=== PATIENT | male | born 1955 | race Caucasian/White ===

== ENCOUNTER 2017-08-29 07:58 | Inpatient (IN) | payer BC ==
--- NOTE | 2017-07-31 09:39 | HISTORY & PHYSICAL EXAMINATION ---
DATE OF ADMISSION: 08/29/2017 PROCEDURE: Left knee replacement. HISTORY OF PRESENT ILLNESS: The patient is a jeremie 61-year-old male who presents today for preop evaluation prior to left knee replacement. He states he has been having pain in this knee for many years now, which has gradually worsened, it has gotten to the point now that it is affecting his daily activities including walking, standing, going up and down steps. He has tried previous oral anti-inflammatories including ibuprofen and Mobic, has done physical therapy, also wears a brace. He has tried previous viscosupplementation including Euflexxa, also has had bilateral knee arthroscopies in the past. At this point in time, x-rays reveal end-stage DJD of the left knee, and after discussing further care, would like to proceed with left knee replacement. PAST MEDICAL HISTORY: 1. Hypertension. 2. Type 2 diabetes, was controlled with diet for the last 10 years, however, was recently placed on metformin about 3 months ago. 3. BPH. ALLERGIES: PENICILLIN CAUSES HIVES. MEDICATIONS: 1. Lisinopril/HCTZ 10/12.5 mg daily. 2. Metformin 500 mg 2 tablets b.i.d. 3. Finasteride 5 mg daily. 4. Mobic 15 mg daily. 5. Trazodone 50 mg at bedtime. FAMILY HISTORY: Noncontributory. SOCIAL HISTORY: The patient denies history of smoking or tobacco use. No alcohol consumption. PAST SURGICAL HISTORY: 1. Bilateral knee arthroscopies outlined above. 2. Hernia repair 2012. 3. Pinky surgery 1992. 4. Left shoulder rotator cuff repair 12/2016. REVIEW OF SYSTEMS: Otherwise negative. Please see HPI for pertinent positives. PHYSICAL EXAMINATION: GENERAL: Jeremie 61-year-old male in no acute distress, alert and oriented x3. He is 6 feet 1, weighs 212 pounds. VITAL SIGNS: Blood pressure 138/86, pulse 60, O2 sats 98%. HEENT: Normocephalic, atraumatic. CARDIAC: Regular rate and rhythm. No murmurs or gallops appreciated. Resting pulse 60 beats per minute. LUNGS: Clear to auscultation without rales or wheeze bilaterally. ABDOMEN: Soft, nontender. Bowel sounds present. EXTREMITIES: Left lower extremity is neurovascularly intact. Calves are soft and nontender. DP pulse +2. Demonstrates good quad tone. Straight leg raise without lag. No erythema or warmth. Has mild effusion. Overall varus alignment. Has positive crepitation with motion. Range of motion is 0/3/115. His knee is ligamentously stable. IMAGING: Reviewed of the left knee showed overall varus alignment, complete loss of joint space of the medial compartment as well as patellofemoral joint with large osteophyte formation, subchondral sclerosis noted. IMPRESSION: 1. Left knee degenerative joint disease. 2. Hypertension. 3. Type 2 diabetes. PLAN: Further care discussed with the patient. At this point in time, has failed conservative measures and would like to proceed with left knee replacement. Will place on aspirin 81 mg p.o. b.i.d. for a month postop. We will also plan on discharge home with home health physical therapy.
[2017-07-31 11:38] VITALS: BMI 28.0
--- NOTE | 2017-07-31 12:07 | PAT Medication Instructions ---
Service Date Jul 31, 2017. Current Home Medication List Acetaminophen (Tylenol Arthritis Ext Rel), 1,300 MG PO Q8H PRN for PRN Finasteride (Proscar), 5 MG PO QPM Hctz/Lisinopril (Lisinopril/Hctz 10/12.5 Mg), 1 TAB PO QAM Meloxicam (Mobic), 15 MG PO QAM Metformin Hcl (Glucophage), 500 MG PO BID Tamsulosin Hcl (Flomax), 0.4 MG PO QPM Trazodone Hcl (Trazodone), 50 MG PO HS PRN for RN Vitamins W/ Lipotropics (Lipoflavonoid), 2 TAB PO BID Medication Instructions For Your Scheduled Surgery - Check with your surgeon for instructions for: Meloxicam (Mobic), 15 MG PO QAM - Hold the following medications 48 hours prior to surgery: Metformin Hcl (Glucophage), 500 MG PO BID - Hold the following medications the morning of surgery: Hctz/Lisinopril (Lisinopril/Hctz 10/12.5 Mg), 1 TAB PO QAM Vitamins W/ Lipotropics (Lipoflavonoid), 2 TAB PO BID - Take the following medications the morning of surgery with a sip of water: Acetaminophen (Tylenol Arthritis Ext Rel), 1,300 MG PO Q8H PRN (if needed, can be taken up to 4 hours before surgery) - Take the following medications as scheduled the night before surgery: Vitamins W/ Lipotropics (Lipoflavonoid), 2 TAB PO BID Trazodone Hcl (Trazodone), 50 MG PO HS PRN (if needed) Tamsulosin Hcl (Flomax), 0.4 MG PO QPM Finasteride (Proscar), 5 MG PO QPM Acetaminophen (Tylenol Arthritis Ext Rel), 1,300 MG PO Q8H PRN (if needed) If you have any questions please call us at [phone] or [phone] or [phone]
[2017-07-31 12:56] LABS: BASO % 0.2 %; BASO ABS # 0.01 K/uL (0-0.2); COMPLETE YES; EOS % 0.7 %; HEMATOCRIT 42.1 % (42-52); IG% 0.2 %; LYMPH % 17.2 %; LYMPH ABS # 0.76 K/uL (1.2-3.4); MEAN CELL VOLUME 93.6 fL (80-100); MEAN CORPUSCULAR HEMOGLOBIN 32.9 pg (25-34); MEAN CORPUSCULAR HGB CONC 35.2 g/dl (32-36); MEAN PLATELET VOLUME 10.1 fL (7.4-10.4); MONO % 6.3 %; NEUT % 75.4 %; PLATELET COUNT 157 K/uL (130-400); WHITE BLOOD COUNT 4.42 K/uL (4.8-10.8)
[2017-07-31 13:02] LABS: URINE APPEARANCE CLEAR (CLEAR); URINE BILIRUBIN NEG (NEG); URINE COLOR YELLOW; URINE NITRITE NEG (NEG); URINE PH 5.5 (4.5-7.5); URINE SPECIFIC GRAVITY 1.013 (1.000-1.030); UROBILINOGEN NEG (NEG); ZZUR CULT IF INDIC CLEAN CATCH NO
[2017-07-31 13:03] LABS: MANUAL MICROSCOPIC REQUIRED? NO; REVIEW REQ? NO
[2017-07-31 13:06] LABS: PROTHROMBIN TIME (PATIENT) 10.7 SECONDS (9.0-12.0)
--- NOTE | 2017-07-31 13:21 | DIAGNOSTIC IMAGING REPORT ---
TWO VIEW CHEST CLINICAL HISTORY: Preoperative examination. FINDINGS: PA and lateral chest radiographs are obtained. No prior studies are available for comparison at the time of dictation. The cardiomediastinal silhouette is unremarkable. The lungs and pleural spaces are clear. There is no pneumothorax. The bony thorax appears intact. IMPRESSION: No active disease in the chest. Electronically signed by: Jose Francisco Garcia M.D. 07/31/2017 1:20 PM Dictated Date/Time: 07/31/2017 1:19 PM
[2017-07-31 13:39] LABS: ESTIMATED AVERAGE GLUCOSE 163 mg/dl; HA1C FLAG Normal (Normal)
[2017-07-31 14:00] LABS: BUN/CREATININE RATIO 19.2 (10-20); CALCIUM 9.2 mg/dl (8.5-10.1); CREATININE 0.94 mg/dl (0.60-1.40); POTASSIUM 4.4 mmol/L (3.5-5.1)
[2017-08-29] VITALS (7 sets, daily range): BP systolic 122–179; BP diastolic 58–78; PULSE 60–86; TEMP 36.4–37; O2SAT 95–97; Ht 185.4 cm; Wt 96.2 kg
[~2017-08-29] VITALS: Ht 185.4 cm; Wt 96.2 kg
[2017-08-29] MEDS: TRANEXAMIC ACID INJ 1,000 MG in SYRINGE 0 ML IV SCH ×2 (06:30→10:29)
--- NOTE | 2017-08-29 07:05 | History & Physical Bridge Note ---
H&P Re-Evaluation Bridge Note: I have examined the patient, reviewed the History & Physical and in the interval since the performance of the History & Physical I have noted the following changes of clinical significance: No changes noted
[~2017-08-29 07:58] MED LIST: ACET1TAB84 PO; ACETAMINOPHEN 500 MG TAB PO SCH; BUPIVACAINE 0.25% 30 ML VIAL ONE; BUPIVACAINE 0.5 % 5 MG/1 ML PF 10ML VIAL ONE; CLINDAMYCIN 600 MG/54 ML D5W 54 ML IV SCH; CeleBREX 200 MG CAP PO SCH; DEXAMETHASONE 4 MG TAB PO SCH; DEXAMETHASONE SOD INJ 4 MG/ML VIAL ONE; EpINEphrine INJ 1MG/ML AMP 1 MG/ML AMP ONE; FAMOTIDINE 20 MG TAB PO SCH; FINA5TAB PO; GABAPENTIN 300 MG CAP PO SCH; GLC/500 PO; LACTATED RINGER'S 1000ML 1,000 ML IV SCH; LACTATED RINGER'S 1000ML 500 ML IV ONE; LACTATED RINGER'S 1000ML IV SCH; LSN/10125 PO; MELO7.5T5 PO; METOCLOPRAMIDE HCL 10 MG TAB PO SCH; ROPIVACAINE 5MG/ML 30 ML 150 MG, BUPIVACAINE 0.5% MPF INJ 30 ML, EpINEphrine HCL INJ 0.... INFIL SCH; TAMS0.4C38 PO; TRAZ50TA35 PO; VITATAB11 PO
[2017-08-29] MEDS ORDERED: MIDAZOLAM HCL 1 MG/ML 2ML VIAL ONE ×2 (08:32→10:47)
[2017-08-29] MEDS ORDERED: FENTANYL CITRATE INJ 50 MCG/1 ML 2 ML VIAL ONE (08:33)
[2017-08-29] MEDS ORDERED: PROPOFOL IV EMULSION 10 MG/ML 20 ML VIAL IV ONE (09:20)
[2017-08-29] MEDS ORDERED: ORTHO JOINT ANESTHETIC ONE (10:11)
[2017-08-29] MEDS ORDERED: BACITRACIN 50000 UNIT VIAL ONE (10:11)
[2017-08-29] MEDS ORDERED: POVIDONE-IODINE OP SOLN 30 ML BTL ONE (10:11)
[2017-08-29] MEDS ORDERED: ONDANSETRON INJ 2 MG/ML 2 ML VIAL IV PRN ×3 (10:15→12:30)
[2017-08-29] MEDS ORDERED: EpHEDrine SULFATE INJ 50 MG/ML AMP IV PRN ×2 (10:15→11:00)
[2017-08-29] MEDS ORDERED: ATROPINE SULFATE 0.1 MG/ML 5ML SYR IV PRN ×2 (10:15→11:00)
--- NOTE | 2017-08-29 11:47 | [facility] Operative Report ---
Operative Report Operative Date Aug 29, 2017. Pre-Operative Diagnosis Left knee degenerative joint disease. Post-Operative Diagnosis Same Procedure(s) Performed Left Total Knee Arthroplasty utilizing Medley & Nephew journey 2 patient matched total knee arthroplasty size 7 femur 6 tibia Poly-35 oval patella Surgeon Dr Diaz Tool Engine Lathe Set Up Operator Surgeon(s) Jose Mora PA-C Estimated Blood Loss 5 ML Findings Severe varus alignment with DJD subchondral cystic formation sclerosis marginal osteophytes varus alignment of knee Specimens a. Left knee- bone and tissue Complication(s) None Disposition Recovery Room / PACU Indications Patient presents after failing attempts at conservative management for DJD of the left knee for severe end-stage Tri-Chlor milligrams joint disease with subchondral cystic formation osteophytes sclerosis patient's failed attempts at injections bracing physical therapy and presents for total knee arthroplasty Description of Procedure After proper prepping and draping of the left lower extremity anterior midline incision was made over the region of the extensor extensor mechanism after meticulous hemostasis was obtained and maintained in subcutaneous tissues a medial parapatellar incision was made The patella was subluxed lateralward the medial lateral gutter were cleaned from any hypertrophic synovitis and scar tissue of the distal femoral block was placed and the distal femoral osteotomy cut was made subsequently the chamfers anterior and posterior osteotomy cuts were made utilizing the 4-in-1 block the tibia was subsequently subluxed anteriorward medial and ateral meniscal remnants were excised in their entirety remnants of the anterior and posterior cruciate ligaments were excised in their entirety excellent exposure of the proximal tibia was obtained the tibial osteotomy guide was placed on the proximal tibial osteotomy cut was made once again the knee was irrigated with copious amounts of sterile saline solution the patella was subsequently everted lateralward thickened scar tissue around the patella was removed the patella was subsequently cut utilizing a freehand technique and was drilled prepared for final preparation and placement of patella socially flexion-extension gaps were checked and the equal and symmetric trials were placed to the appropriate femoral and tibial trials with poly-spacer being placed for equal flexion and extension gaps and full range of motion including extension to 0 and flexion to 140 the trial components after having been taken to recovery range of motion was subsequently removed meticulous hemostasis was obtained and maintained subsequently a knee block injection of joint cocktail including ropivacaine 0.5% 150 mg. Bupivacaine 0.5 % epinephrine 1-200,030 mL's toradol 30 mg dexamethasone 4 mg ketamine 10 mg clonidine 100 micrograms normal saline solution 30 mg was infiltrated into the soft tissues of the posterior knee medial lateral gutters and periosteal synovium special attention was paid to protect neurovascular structures at all times subsequently trial components having been removed the knee was irrigated with sterile saline solution. debris was removed the proximal tibia was subsequently prepared and was made ready for the placement of the tibial component tibial component was also cemented and tamped into position the femoral component was subsequently placed and cemented in the position the patellar component was subsequently cemented in position because hemostasis once again obtained and maintained wound having been thoroughly irrigated with debridement and debridement lavage was performed as well as a medial parapatellar incision closed with #1 Vicryl in interrupted fashion subcutaneous was closed with #2 Vicryl skin was closed with skin clips. PA-C was necessary for prepping and drapping as well as wound closure of deep fascia Sub cutaneous tissue and skin and was necessary for the case. A sterile compressive dressing was placed patient was taken to recovery in stable condition of report dictated by Joe I attest to the content of the Intraoperative Record and any orders documented therein. Any exceptions are noted below. I attest to the content of the Intraoperative Record and any orders documented therein. Any exceptions are noted below.
[2017-08-29] MEDS ORDERED: ALUMINUM/MAGNESIUM/SIMETH (MAALOX MAX) 30 ML UDC PO PRN (12:30)
[2017-08-29] MEDS ORDERED: TRAMADOL HCL 50 MG TAB PO PRN (12:30)
[2017-08-29] MEDS ORDERED: MoRPHine SULFATE 2 MG/ML CARP IV PRN (12:30)
[2017-08-29] MEDS ORDERED: MAGNESIUM HYDROXIDE SUSP 30 ML UDC PO PRN (12:30)
[2017-08-29] MEDS ORDERED: ZOLPIDEM TARTRATE 5 MG TAB PO PRN (12:30)
[2017-08-29] MEDS ORDERED: BISACODYL 10 MG SUPP PR PRN (12:30)
[2017-08-29] MEDS ORDERED: SOD PHOSPHATE/SOD BIPHOSPHATE ENEMA 132 ML BTL PR PRN (12:30)
[2017-08-29] MEDS ORDERED: OXYCODONE HCL IR 5 MG TAB (IMMEDIATE RELEASE) PO PRN (12:30)
[2017-08-29] MEDS ORDERED: TRAZODONE HCL 50 MG TAB PO PRN (12:30)
[2017-08-29] MEDS ORDERED: PHARMACY GLYCEMIC MGMT CONSULT PRN (12:43)
--- NOTE | 2017-08-29 13:02 | Anesthesiology Progress Note ---
Anesthesia Post Op Note Date & Time Aug 29, 2017 at 13:02 Vital Signs Pain Intensity: 0 Vital Signs Past 12 Hours Date Time Temp Pulse Resp B/P (MAP) Pulse Ox O2 Delivery O2 Flow Rate FiO2 08/29/17 12:50 36.3 61 15 115/65 97 Nasal Cannula 2 08/29/17 12:40 60 26 121/61 97 Nasal Cannula 2 08/29/17 12:30 61 17 119/61 97 Nasal Cannula 2 08/29/17 12:20 36.3 62 14 124/66 97 Oxymask 10 08/29/17 08:20 37 66 18 179/78 97 Room Air Notes Mental Status: alert / awake / arousable, participated in evaluation Pt Amnestic to Procedure: Yes Nausea / Vomiting: adequately controlled Pain: adequately controlled Airway Patency, RR, SpO2: stable & adequate BP & HR: stable & adequate Hydration State: stable & adequate Neuraxial Anesthesia: was administered, sensory block is resolving Anesthetic Complications: no major complications apparent
--- NOTE | 2017-08-29 13:03 | DIAGNOSTIC IMAGING REPORT ---
LEFT KNEE 2 VIEWS History: Left total knee arthroplasty. Degenerative arthritis. Postop. FINDINGS: The patient is status post a left total knee arthroplasty. The hardware is intact. No fracture or dislocation. Surgical drains are in place. IMPRESSION: Left total knee arthroplasty. No evidence for hardware complication. Electronically signed by: Get Munoz M.D. 08/29/2017 1:01 PM Dictated Date/Time: 08/29/2017 1:01 PM
[2017-08-29] MEDS ORDERED: DEXTROSE 50% 50 ML SYR IV PRN (13:15)
[2017-08-29] MEDS ORDERED: GLUCOSE 10 TABS/TUBE PO PRN (13:15)
[2017-08-29] MEDS ORDERED: GLUCAGON FOR INJ 1 MG VIAL SQ PRN (13:15)
[2017-08-29] MEDS ORDERED: INSULIN GLARGINE SOLOSTAR 100 UNITS/ML 3 ML PEN SC ONE ×2 (13:15→21:00)
[2017-08-29] MEDS ORDERED: GLUCOSE 40% GEL 15 GM TUBE PO PRN (13:15)
[2017-08-29] MEDS ORDERED: INSULIN ASPART 100 UNITS/ML 3 ML PEN SC SCH (13:30)
[2017-08-29] MEDS: INSULIN ASPART 100 UNITS/ML 3 ML PEN SC SCH ×3 (15:00→21:00)
[2017-08-29] MEDS ORDERED: INSULIN ASPART 100 UNITS/ML 3 ML PEN SC ONE (15:15)
[2017-08-29] MEDS ORDERED: INSULIN HUMAN REGULAR IV BOLUS 3.5 UNIT in SYRINGE 0 ML IV SCH (15:15)
--- NOTE | 2017-08-29 15:37 | Pharmacy Progress Note ---
Glycemic Control Intl Consult Date of Service Aug 29, 2017. Scope Glycemic Pharmacist consulted by MARIANNE Jean on 08/29/17 for glycemic control and to write orders per [facility] inpatient glycemic control protocol Objective Weight (Kilograms): 96.20 Accuchecks BSG (last 24hrs): Test 08/29/17 08:25 08/29/17 12:48 Bedside Glucose 212 mg/dl (70-99) 222 mg/dl (70-99) Recent Pertinent Medications Outpatient Anti-diabetic Regimen: * Metformin 500 mg BID * A1c = 7.3 % 07/31/17 Risk Factors for Insulin Resistance: * Steroids: Decadron 8 mg po preop, 4 mg IV intraop and will receive another 8 mg po on POD #1 * Recent Surgery: POD 0 s/p L total knee arthroplasty * Diet: type 2 diabetes diet ordered postop * Baseline insulin resistance - preop BSG of 212 mg/dL Assessment & Plan ASSESSMENT: * 61 y/o male with type 2 diabetes, fairly well controlled as per recent A1c, however, preop BSG this AM was > 200 mg/dL * Since he is receiving preop and postop Decadron, expect insulin needs to be quite significant, especially with a baseline BSG > 200 * Upon review of patient cases similar to this, insulin requirements are typically based on insulin calculator estimates using the patient's weight and a stress level of 3 for POD 0 - this would be 48 units of Lantus and CF 15, CR 6 for today * Because his baseline BSG is already elevated, it would be prudent to start an insulin drip to quickly improve BSGs * I spoke with the nurse and patient to inform them of above. Will plan to leave the basal on board and use a set carb ratio for the insulin drip to hopefully have the drip on for a short period of time PLAN FOR INPATIENT GLYCEMIC CONTROL: * Start IV insulin infusion per severe stress protocol * Goal Range 110 - 150 mg/dl * Hold outpatient oral diabetes medications - can resume closer to discharge * Basal insulin with LANTUS 48 units SQ x 1 now, then 9 or 16 units tonight if BSG remains elevated * Prandial insulin with a set carb ratio of 1 unit per 6 gm CHO * Please note that the plan above was derived based on current level of insulin resistance and hospital stress. These recommendations are appropriate for inpatient admission only. Plan of care upon discharge will need to be reassessed to avoid potential outpatient hypo/hyperglycemia. Thank you.
[2017-08-29] MEDS: INSULIN REGULAR 250 UNITS in SODIUM CHLORIDE 0.9% 250ML 250 ML IV SCH ×6 (15:42→21:58)
[2017-08-29] MEDS ORDERED: INFLUENZA VIRUS QUAD VACCINE 0.5 ML SYR IM. ONE (16:00)
[2017-08-29] MEDS ORDERED: INFLUENZA ADMINISTRATION CHARGE ONE (16:00)
[2017-08-29] MEDS: KETOROLAC TROMETHAMINE 30 MG/ML VIAL IV. SCH ×2 (16:20→22:04)
[2017-08-29] MEDS: ACETAMINOPHEN 500 MG TAB PO SCH ×2 (16:21→22:04)
[2017-08-29] MEDS: SODIUM CHLORIDE 0.9% 1000ML 1,000 ML IV SCH (17:30)
[2017-08-29] MEDS: CLINDAMYCIN IV 600 MG in DEXTROSE 5% 50ML 50 ML IV SCH (18:11)
[2017-08-29] MEDS: SENNA 8.6 MG TAB PO SCH (22:03)
[2017-08-29] MEDS: FINASTERIDE 5 MG TAB PO SCH (22:03)
[2017-08-29] MEDS: ASPIRIN 81 MG ECTAB PO SCH (22:03)
[2017-08-29] MEDS: TAMSULOSIN HCL 0.4 MG CAP PO SCH (22:03)
[2017-08-30] MEDS ORDERED: INSULIN ASPART 100 UNITS/ML 3 ML PEN SC SCH
[2017-08-30] MEDS: INSULIN REGULAR 250 UNITS in SODIUM CHLORIDE 0.9% 250ML 250 ML IV SCH ×5 (00:03→07:05)
[2017-08-30] MEDS: CLINDAMYCIN IV 600 MG in DEXTROSE 5% 50ML 50 ML IV SCH (02:00)
[2017-08-30] MEDS: SODIUM CHLORIDE 0.9% 1000ML 1,000 ML IV SCH ×2 (02:57→11:40)
[2017-08-30] MEDS: KETOROLAC TROMETHAMINE 30 MG/ML VIAL IV. SCH ×2 (03:57→10:16)
[2017-08-30 04:00] VITALS: BP 113/65; PULSE 60; TEMP 36.9; O2SAT 96
[2017-08-30] MEDS: ACETAMINOPHEN 500 MG TAB PO SCH ×3 (05:06→21:26)
[2017-08-30 05:56] LABS: HEMATOCRIT 33.3 % (42-52); MEAN CELL VOLUME 93.5 fL (80-100); MEAN CORPUSCULAR HEMOGLOBIN 31.2 pg (25-34); MEAN CORPUSCULAR HGB CONC 33.3 g/dl (32-36); MEAN PLATELET VOLUME 9.8 fL (7.4-10.4); PLATELET COUNT 158 K/uL (130-400); RED BLOOD COUNT 3.56 M/uL (4.7-6.1); WHITE BLOOD COUNT 10.84 K/uL (4.8-10.8)
[2017-08-30 06:25] LABS: BUN/CREATININE RATIO 24.3 (10-20); CALCIUM 8.6 mg/dl (8.5-10.1); CREATININE 0.98 mg/dl (0.60-1.40)
--- NOTE | 2017-08-30 07:26 | Orthopedic Progress Note ---
Orthopedic Progress Note Date of Service Aug 30, 2017. Subjective Post OP Day: 1 Reports: feeling well, Denies: complaints Objective calves soft nontender, N/V intact, dressing C/D/I, A&O x3, toes mobile, hemovac drainage (200ml latest shift) Date Time Temp Pulse Resp B/P (MAP) Pulse Ox O2 Delivery O2 Flow Rate FiO2 08/30/17 04:00 36.9 60 16 113/65 (81) 96 Room Air 08/29/17 23:31 Room Air 08/29/17 23:05 36.8 60 16 134/67 (89) 96 Room Air 08/29/17 20:08 36.5 63 17 122/67 (85) 95 Room Air 08/29/17 19:40 Room Air 08/29/17 16:56 37.0 86 17 148/72 (97) 96 Nasal Cannula 2.0 08/29/17 15:52 36.6 73 16 123/58 (79) 97 Nasal Cannula 2.0 08/29/17 15:00 36.4 67 17 122/69 (86) 96 Nasal Cannula 2.0 08/29/17 14:27 65 17 126/71 (89) 96 Nasal Cannula 2.0 08/29/17 14:00 Nasal Cannula 2.0 08/29/17 14:00 Nasal Cannula 2.0 08/29/17 13:45 71 18 120/66 95 Nasal Cannula 2 08/29/17 13:30 68 18 121/66 97 Nasal Cannula 2 08/29/17 13:15 66 20 100/66 96 Nasal Cannula 2 08/29/17 13:00 65 22 110/61 97 Nasal Cannula 2 08/29/17 12:50 36.3 61 15 115/65 97 Nasal Cannula 2 08/29/17 12:40 60 26 121/61 97 Nasal Cannula 2 08/29/17 12:30 61 17 119/61 97 Nasal Cannula 2 08/29/17 12:20 36.3 62 14 124/66 97 Oxymask 10 08/29/17 08:20 37 66 18 179/78 97 Room Air Laboratory Results 24 Hours: Test 08/30/17 05:33 Hematocrit 33.3 % Hemoglobin 11.1 g/dL Assessment & Plan Assessment: POD 1 s/p Left TKA Plan: PT/OT today DVT proph - ASA bid Planning for HH services upon dc Plan for dc tomorrow Inhouse Planning Pain Management: Celebrex, Ultram, Morphine, PO Tylenol, Oxy IR DVT Prophylaxis: TEDs, SCDs, ASA Discharge Planning Discharge Planning: home with home health
[2017-08-30] MEDS ORDERED: INSULIN GLARGINE SOLOSTAR 100 UNITS/ML 3 ML PEN SC ONE ×2 (07:30→21:00)
[2017-08-30] MEDS ORDERED: DEXAMETHASONE 4 MG TAB PO SCH (07:30)
--- NOTE | 2017-08-30 07:40 | Discharge Instructions ---
Discharge Instructions Date of Service Aug 30, 2017. Admission Reason for Admission: Left Knee Osteoarthritis Discharge Discharge Diagnosis / Problem: Left Knee Djd Discharge Goals Goal(s): Decrease discomfort, Improve function Activity Recommendations Activity Limitations: per Instructions/Follow-up section Weightbearing Status: Left weightbearing (as tolerated) . Instructions / Follow-Up Instructions / Follow-Up ACTIVITY RECOMMENDATIONS: SELF CARE INSTRUCTIONS AFTER TOTAL KNEE REPLACEMENT A. You may need to continue a physical therapy program after discharge from the hospital. There are several options available to you. Your doctor will assist you in selecting the best one for you. 1. An out-patient facility 2 to 3 times a week for therapy or home therapy. 2. Continue working on all exercises taught to you in the hospital. Your goals should be to increase bending of your knee to 90 degrees and beyond and to fully straighten your knee. B. You may progress at your own pace from walking with a walker or crutches to a cane; then to no assistive devices. C. Make walking a part of your daily routine. Be up as much as comfortable with rest periods throughout the day. Rest with leg elevation is very important. Use the ice wrap frequently for the first 3-4 weeks. D. There are no restrictions on activities. You may ride in a car, shop, participate in master carpenter and all social activities. E. Wear the long elastic stockings (HORTENSIA hose) 20 hours a day for 2 weeks after surgery. They can be removed several times a day for laundering and for a bath. F. You may shower, no tub baths until cleared by your doctor. SPECIAL CARE INSTRUCTIONS: VERY IMPORTANT TO READ AND REVIEW A. There are a few signs you need to watch for after you are home. Call [facility] if you notice any of the followin. Increased severe knee pain. Some pain is expected especially when you exercise. 2. Increased swelling in your leg or knee; pain or swelling of the calf muscle in either lower leg. 3. Any fluid drainage from the incision. 4. Shortness of breath or chest pain. B. Please call [facility] at if you have any concerns or questions about your operation or recovery. The doctor or his nurse will return your call promptly. C. You must take antibiotics before dental work, bladder, bowel or other surgery. Your doctor will provide you with a permanent care to carry describing this precaution. IMPORTANT: * REMEMBER TO TAKE ASPIRIN, 81 MG, TWICE DAILY FOR 4 WEEKS UNLESS OTHERWISE DIRECTED. THIS IS YOUR BLOOD THINNER. * HIGH RISK PATIENTS MAY BE PRESCRIBED A STRONGER BLOOD THINNER. THIS WILL BE PROVIDED AT DISCHARGE. * CALL IF INCREASED PAIN, REDNESS, DRAINAGE OR FEVER GREATER THAT 101. * WEAR HORTENSIA HOSE 20 HOURS PER DAY FOR 2 WEEKS. * DERMABOND Prineo- This is a mesh tape dressing that is covered with glue. It should remain in place until the incision is properly healed, usually 10-14 days. This dressing is designed to naturally slough off. You may trim the excess mesh tape as it peels off. Incision may be briefly wet in a shower. Dry immediately by blotting with a clean, dry towel. Do not bath or swim until instructed by your doctor. Do not scratch, rub, or pick at the dressing. Do not apply any topical ointments or lotions until dressing is completely removed and/or instructed by your doctor. There may be a small piece of suture material at one end of your incision. Do not pull or trim this. If it is bothersome or catching on clothing, you may cover it with a band-aid. . FOLLOW UP VISIT: If appointment is not already scheduled: Please call [facility] to make a follow-up appointment for 2 weeks after your surgery at . Current Hospital Diet Patient's current hospital diet: Diabetes Type 2 Diet Discharge Diet Recommended Diet: Diabetes Type 2 Diet Procedures Procedures Performed: Left Total Knee Arthroplasty utilizing Medley & Nephew journey 2 patient matched total knee arthroplasty size 7 femur 6 tibia Poly-35 oval patella Pending Studies Studies pending at discharge: no Laboratory Results Hemoglobin A1c Test 07/31/17 12:25 Range/Units Estimated Average Glucose 163 mg/dl Hemoglobin A1c 7.3 H 4.5-5.6 % Medical Emergencies . Who to Call and When: Medical Emergencies: If at any time you feel your situation is an emergency, please call 911 immediately. . Non-Emergent Contact Non-Emergency issues call your: Surgeon Call Non-Emergent contact if: temperature is above 101.5, your pain is not controlled, your pain is worsening, wound has increased drainage, wound has increased redness . "Provider Documentation" section prepared by Jorge Herring. . VTE Core Measure Inpt VTE Proph given/why not?: Other Anticoagulation, T.E.DDarrian Stockings, SCD's [place] Drug Monitoring Program Search Results: patient reviewed within database, no issues identified
[2017-08-30 07:44] VITALS: BP 144/70; PULSE 63; TEMP 36.4; O2SAT 97
[2017-08-30 08:07] VITALS: O2SAT 97
[2017-08-30] MEDS: MULTIVITAMIN TAB PO SCH (09:10)
[2017-08-30] MEDS: ASPIRIN 81 MG ECTAB PO SCH ×2 (09:10→21:26)
[2017-08-30] MEDS: LISINOPRIL/HCTZ 10/12.5MG TAB PO SCH (09:10)
[2017-08-30] MEDS: PANTOprazole SOD 40 MG TAB PO SCH (09:10)
[2017-08-30] MEDS: INSULIN ASPART 100 UNITS/ML 3 ML PEN SC SCH ×4 (09:14→21:27)
--- NOTE | 2017-08-30 09:51 | Pharmacy Progress Note ---
Pharmacy Glycemic Short Note 2 Date of Service Aug 30, 2017. OUTPATIENT ANTIDIABETIC REGIMEN: * Metformin 500 mg BID * A1c 7.3% on 07/31/17 ASSESSMENT: * Patient is POD #1 s/p L TKA * Insulin drip remains on, current rates ~1.1 units/hr, and BSGs have significantly improved with the addition of this * He will receive another dose of Decadron po this AM but no further steroid doses are ordered * Since insulin drip rates are fairly low and basal insulin is already on board , will d/c the insulin drip now * Will give another dose of Lantus this AM, using total daily basal dose and a stress of 2, and then schedule a "sliding scale" of Lantus tonight in case additional is needed * CF/CR will be loosened slightly to a stress of 2 using insulin calculator estimates PLAN FOR INPATIENT GLYCEMIC CONTROL: * Hold outpatient oral diabetes medications - will resume tomorrow for transition to home * Basal insulin * Lantus 32 units this AM, then 9 or 16 units tonight based on BSG * Bolus insulin * NovoLog per scale ACHS or Q6hrs while NPO * Goal Range: Low 110 mg/dL - High 140 mg/dL * LOOSEN to Correction Factor: 25 mg/dL/unit * LOOSEN to Nutritional / Prandial insulin per carb ratio of 1 unit per 8 grams CHO consumed PLAN FOR DISCHARGE: * A1c acceptable * Continue metformin
--- NOTE | 2017-08-30 09:56 | Clinical Documentation Query ---
STEPHANIE Hodge : CLINICAL DOCUMENTATION QUERY Patient underwent elective left TKA on 08/29. Preoperative H&H was 14.8 g/dl and 42.1%. POD #1, repeat values are 11.1 g/dl and 33.3%. EBL for the procedure was 5 ml's. Subsequently documented losses total an additional 775 ml's to date. He is being monitored with serial hematology and I/O including drain outputs. Net I/O noted to be balanced arguing against dilutional component. In your clinical opinion is this patient being managed for: ( x ) Acute blood loss anemia ( ) Not Agree ( ) Other explanation of clinical findings (Please Explain) ( ) Unable to determine (Please Define) ( ) Need to Discuss The medical record reflects the following clinical findings, treatment, and risk factors. Clinical Indicators: As above Treatment:He is being monitored with serial hematology and I/O including drain outputs Risk Factors: Perioperative blood losses. Please clarify and document your clinical opinion in the progress notes and discharge summary. Terms such as "probable", "suspected", "likely", "questionable", "possible", or "still to be ruled out" are acceptable. IF IN AGREEMENT, YOU MUST DOCUMENT ABOVE DIAGNOSTIC STATEMENT IN DAILY PROGRESS NOTES AND DISCHARGE SUMMARY. This document is not part of the patient's record. Thank You, Onur Grady RN [phone]
[2017-08-30 11:33] VITALS: BP 140/72; PULSE 66; TEMP 36.8; O2SAT 96
[2017-08-30 15:59] VITALS: BP 114/58; PULSE 57; TEMP 36.5; O2SAT 97
[2017-08-30] MEDS: TAMSULOSIN HCL 0.4 MG CAP PO SCH (21:26)
[2017-08-30] MEDS: CeleBREX 200 MG CAP PO SCH (21:26)
[2017-08-30] MEDS: FINASTERIDE 5 MG TAB PO SCH (21:26)
[2017-08-30] MEDS: SENNA 8.6 MG TAB PO SCH (21:26)
[2017-08-30 23:40] VITALS: BP 135/73; PULSE 61; TEMP 36.9; O2SAT 98
[2017-08-31] MEDS: ACETAMINOPHEN 500 MG TAB PO SCH (06:08)
[2017-08-31 06:46] VITALS: BP 132/72; PULSE 57; TEMP 36.4; O2SAT 98
--- NOTE | 2017-08-31 07:22 | Orthopedic Progress Note ---
Orthopedic Progress Note Date of Service Aug 31, 2017. Subjective Post OP Day: 2 Reports: feeling well, Denies: complaints Objective calves soft nontender, N/V intact, incision C/D/I, A&O x3, toes mobile Date Time Temp Pulse Resp B/P (MAP) Pulse Ox O2 Delivery O2 Flow Rate FiO2 08/31/17 06:46 36.4 57 16 132/72 (92) 98 Room Air 08/31/17 00:30 Room Air 08/30/17 23:40 36.9 61 16 135/73 (93) 98 Room Air 08/30/17 15:59 36.5 57 17 114/58 (76) 97 Room Air 08/30/17 15:10 Room Air 08/30/17 11:33 36.8 66 16 140/72 (94) 96 Room Air 08/30/17 08:07 97 Room Air 08/30/17 07:44 36.4 63 16 144/70 (94) 97 Room Air 08/30/17 07:30 Room Air Assessment & Plan Assessment: POD 2 s/p Left TKA Plan: PT/OT DVT proph - ASA bid Planning for HH services upon dc Plan for dc today Inhouse Planning Pain Management: Celebrex, Ultram, Morphine, PO Tylenol, Oxy IR DVT Prophylaxis: TEDs, SCDs, ASA Discharge Planning Discharge Planning: home with home health
[2017-08-31] MEDS ORDERED: CLB200 PO (07:24)
[2017-08-31] MEDS ORDERED: ACET-24 PO (07:24)
[2017-08-31] MEDS ORDERED: RXC5 PO (07:24)
[2017-08-31] MEDS ORDERED: ASPEC81 PO (07:24)
[2017-08-31] MEDS ORDERED: SENN1TAB80 PO (07:24)
[2017-08-31] MEDS: CeleBREX 200 MG CAP PO SCH (07:27)
[2017-08-31] MEDS: MULTIVITAMIN TAB PO SCH (07:27)
[2017-08-31] MEDS: ASPIRIN 81 MG ECTAB PO SCH (07:27)
[2017-08-31] MEDS: PANTOprazole SOD 40 MG TAB PO SCH (07:27)
[2017-08-31] MEDS: LISINOPRIL/HCTZ 10/12.5MG TAB PO SCH (07:28)
[2017-08-31] MEDS: INSULIN ASPART 100 UNITS/ML 3 ML PEN SC SCH ×2 (07:34→12:00)
[2017-08-31] MEDS ORDERED: METFORMIN HCL 500 MG TAB PO SCH (08:30)
[2017-08-31 08:38] VITALS: BP 113/66; PULSE 62; O2SAT 98
[2017-08-31 09:38] VITALS: BP 132/72; PULSE 57; TEMP 36.4; O2SAT 98
--- NOTE | 2017-08-31 11:05 | Pharmacy Progress Note ---
Pharmacy Glycemic Short Note 2 Date of Service Aug 31, 2017. OUTPATIENT ANTIDIABETIC REGIMEN: * Metformin 500 mg BID ASSESSMENT: * Patient received 68 units of insulin yesterday with BSGs ranging from 97-189 mg/dL * Ok to continue with resumption of metformin today * No further need for basal insulin * Will loosen the CF slightly and remove the CR since metformin is resumed and Decadron has worn off PLAN FOR INPATIENT GLYCEMIC CONTROL: * Metformin 500 mg BID * LOOSEN CF to 25 * Remove CR PLAN FOR DISCHARGE: * d/c recs entered yesterday
== END 2017-08-31 13:15 | disposition home health service (06) | DRG 470 ==
LOC: C.ACU 07:58 → C.3E 08:44 → ENRESERV 13:37
PROVIDERS: ADMIT Orthopaedic Surgery; ATTEND Orthopaedic Surgery
PROC: 0SRD0J9 Replacement of Left Knee Joint with Synthetic Substitute, Cemented, Open Approach (ICD-10-PCS; principal; 2017-08-29 10:30)
DX: M17.12 Unilateral primary osteoarthritis, left knee (principal); I10 Essential (primary) hypertension; E11.9 Type 2 diabetes mellitus without complications; N40.0 Benign prostatic hyperplasia without lower urinary tract symptoms; Z79.84 Long term (current) use of oral hypoglycemic drugs; Z88.0 Allergy status to penicillin

== ENCOUNTER 2018-02-20 08:25 | Inpatient (IN) | payer BC, OTHER ==
[2018-01-26 12:20] LABS: BASO % 0.3 %; BASO ABS # 0.01 K/uL (0-0.2); EOS % 0.6 %; EOS ABS # 0.02 K/uL (0-0.5); HEMATOCRIT 43.8 % (42-52); HEMOGLOBIN 14.6 g/dL (14.0-18.0); IG# 0.01 K/uL (0.00-0.02); LYMPH % 21.9 %; LYMPH ABS # 0.76 K/uL (1.2-3.4); MEAN CELL VOLUME 89.9 fL (80-100); MEAN CORPUSCULAR HGB CONC 33.3 g/dl (32-36); MEAN PLATELET VOLUME 10.2 fL (7.4-10.4); MONO % 7.8 %; MONO ABS # 0.27 K/uL (0.11-0.59); NEUT % 69.1 %; PLATELET COUNT 166 K/uL (130-400); RED CELL DISTRIBUTION WIDTH CV 14.4 % (11.5-14.5); RED CELL DISTRIBUTION WIDTH SD 47.3 fL (36.4-46.3); WHITE BLOOD COUNT 3.47 K/uL (4.8-10.8)
[2018-01-26 12:35] LABS: PTT PATIENT 24.6 SECONDS (21.0-31.0)
[2018-01-26 12:38] LABS: ALBUMIN 4.2 gm/dl (3.4-5.0); BLOOD UREA NITROGEN 19 mg/dl (7-18); CALCIUM 9.2 mg/dl (8.5-10.1); CARBON DIOXIDE 29 mmol/L (21-32); GLUCOSE 276 mg/dl (70-99); SODIUM 138 mmol/L (136-145)
[2018-01-26 12:46] LABS: HEMOGLOBIN A1C 8.3 % (4.5-5.6)
[2018-01-30 08:55] VITALS: BMI 27.0
[2018-02-20] VITALS (8 sets, daily range): BP systolic 117–171; BP diastolic 57–83; PULSE 57–78; TEMP 36.8–37; O2SAT 93–98; Ht 185.4 cm; Wt 95.5 kg
[~2018-02-20] VITALS: Ht 185.4 cm; Wt 95.5 kg
[2018-02-20] MEDS: TRANEXAMIC ACID INJ 1,000 MG x 2 Bags IV SCH ×4 (06:30→10:42)
--- NOTE | 2018-02-20 07:11 | History and Physical ---
History & Physical Date February 20, 2018. Chief Complaint Patient presents as a 62-year-old white male 641 210 pounds white male with complaints of ongoing pain about his right knee presents for right total knee arthroplasty after failing attempts at conservative management including physical therapy anti-inflammatories relative rest activity modification corticosteroid injections Visco supplementation his previous undergone successful left total knee arthroplasty presents today for right total knee arthroplasty History of Present Illness The patient is a 62 year old male with complaints of ongoing pain about his right knee he has bone the bone changes subchondral cystic changes eburnated bone marginal osteophyte sclerosis presents for total knee arthroplasty after failing conservative management Past Medical/Surgical History Medical Problems: (1) Left knee DJD patient also history of heart murmur as well as hypertension Additional History Hepatic Disease: No Endocrine Disorder: No Kidney Disease: No Hypertension: Yes Heart Disease: Yes Bleeding Tendencies: No Infectious Diseases: No Allergies Coded Allergies: Penicillins (Verified Allergy, Unknown, HIVES, 08/29/17) Home Medications Scheduled Acetaminophen (Sb Non-Aspirin Extra Stre), 1,000 MG PO Q8 Finasteride (Proscar), 5 MG PO QPM Hctz/Lisinopril (Lisinopril/Hctz 10/12.5 Mg), 1 TAB PO QAM Meloxicam (Meloxicam), 1 TAB PO QAM Metformin Hcl (Glucophage), 500 MG PO BID Tamsulosin Hcl (Flomax), 0.4 MG PO QPM Vitamins W/ Lipotropics (Lipoflavonoid), 2 TAB PO BID [Prostate Defense], 1 TAB PO QAM Scheduled PRN Trazodone Hcl (Trazodone), 50 MG PO HS PRN for RN Physical Examination Skin: warm/dry, no rash Eyes: normal inspection, EOMI, sclerae normal ENT: normal ENT inspection, pharynx normal Head: normocephalic, atraumatic Neck: supple, no adenopathy, trachea midline Respiratory/Chest: lungs clear, normal breath sounds, no respiratory distress Cardiovascular: regular rate, rhythm, no edema, no murmur Abdomen / GI: normal bowel sounds, non tender Back: normal inspection Extremities: normal inspection, normal range of motion, + pertinent finding ( Patient presents with severe end-stage DJD varus alignment subchondral bone changes sclerosis marginal osteophytes no response to conservative therapy) Neurologic/Psych: no motor/sensory deficits, alert, normal reflexes, oriented x 3
[~2018-02-20 08:25] MED LIST changes: +ACET-24 PO; -ACET1TAB84 PO; -BUPIVACAINE 0.25% 30 ML VIAL ONE; -CeleBREX 200 MG CAP PO SCH; -DEXAMETHASONE SOD INJ 4 MG/ML VIAL ONE; -EpINEphrine INJ 1MG/ML AMP 1 MG/ML AMP ONE; -GABAPENTIN 300 MG CAP PO SCH; +GABAPENTIN 600 MG PO SCH; -LACTATED RINGER'S 1000ML 500 ML IV ONE; -LACTATED RINGER'S 1000ML IV SCH; +MELO-83 PO; -MELO7.5T5 PO; +ROPIVACAINE 0.5% 5 MG/ML 30 ML VIAL ONE; +[UNRECOGNIZED DRUG - OTHER] PO
[2018-02-20] MEDS ORDERED: antibiotic PO (09:13)
[2018-02-20] MEDS ORDERED: ORTHO JOINT ANESTHETIC ONE (10:15)
[2018-02-20] MEDS ORDERED: POVIDONE-IODINE OP SOLN 30 ML BTL ONE (10:15)
[2018-02-20] MEDS ORDERED: BACITRACIN 50000 UNIT VIAL ONE (10:15)
[2018-02-20] MEDS ORDERED: MIDAZOLAM HCL 1 MG/ML 2ML VIAL ONE ×2 (10:22)
[2018-02-20] MEDS ORDERED: PROPOFOL IV EMULSION 10 MG/ML 20 ML VIAL ONE (10:59)
[2018-02-20] MEDS ORDERED: LIDOCAINE HCL 2% 2 ML VIAL (20MG/ML) ONE (10:59)
--- NOTE | 2018-02-20 11:54 | [facility] Post Operative Brief Note ---
Immediate Operative Summary Operative Date February 20, 2018. Pre-Operative Diagnosis Right knee degenerative joint disease Post-Operative Diagnosis Right knee degenerative joint disease Procedure(s) Performed Right knee total arthroplasty utilizing Medley nephExperts 911 patient matched journey to total knee arthroplasty size 7 femur 6 tibia 10 polyethylene [address] Jay Diaz Machine Designer Surgeon(s) Jorge Castillo, Dr. Hever Srinivasan Estimated Blood Loss 5ml Findings Consistent with Post-Op Diagnosis Specimens A: Right knee bone and tissue Anesthesia Type MAC Spinal Regional Complication(s) none Disposition Disposition: Recovery Room / PACU
--- NOTE | 2018-02-20 11:56 | [facility] Operative Report ---
Operative Report Operative Date February 20, 2018. Pre-Operative Diagnosis Right knee degenerative joint disease Post-Operative Diagnosis Right knee degenerative joint disease Procedure(s) Performed Right knee total arthroplasty utilizing Medley nephTopBlip patient matched journey to total knee arthroplasty size 7 femur 6 tibia 10 polyethylene [address] Jay Diaz Call Worker Person Surgeon(s) Jorge Castillo, Dr. Hever Srinivasan Estimated Blood Loss 5ml Findings Patient intraoperative findings were that of tricompartmental degenerative Specimens A: Right knee bone and tissue Anesthesia Type MAC Spinal Regional Complication(s) none Disposition Recovery Room / PACU Indications Patient presents after failed attempts at conservative management including physical therapy anti-inflammatories relative rest activity modification cortical steroid injections Visco supplementation bracing patient's failed times conservative management presents for right total knee arthroplasty Description of Procedure After proper prepping and draping of the Right lower extremity anterior midline incision was made over the region of the extensor extensor mechanism after meticulous hemostasis was obtained and maintained in subcutaneous tissues a medial parapatellar incision was made The patella was subluxed lateralward the medial lateral gutter were cleaned from any hypertrophic synovitis and scar tissue of the distal femoral block was placed and the distal femoral osteotomy cut was made subsequently the chamfers anterior and posterior osteotomy cuts were made utilizing the 4-in-1 block the tibia was subsequently subluxed anteriorward medial and ateral meniscal remnants were excised in their entirety remnants of the anterior and posterior cruciate ligaments were excised in their entirety excellent exposure of the proximal tibia was obtained the tibial osteotomy guide was placed on the proximal tibial osteotomy cut was made once again the knee was irrigated with copious amounts of sterile saline solution the patella was subsequently everted lateralward thickened scar tissue around the patella was removed the patella was subsequently cut utilizing a freehand technique and was drilled prepared for final preparation and placement of patella socially flexion-extension gaps were checked and the equal and symmetric trials were placed to the appropriate femoral and tibial trials with poly-spacer being placed for equal flexion and extension gaps and full range of motion including extension to 0 and flexion to 140 the trial components after having been taken to recovery range of motion was subsequently removed meticulous hemostasis was obtained and maintained subsequently a knee block injection of joint cocktail including ropivacaine 0.5% 150 mg. Bupivacaine 0.5 % epinephrine 1-200,030 mL's toradol 30 mg dexamethasone 4 mg ketamine 10 mg clonidine 100 micrograms normal saline solution 30 mg was infiltrated into the soft tissues of the posterior knee medial lateral gutters and periosteal synovium special attention was paid to protect neurovascular structures at all times subsequently trial components having been removed the knee was irrigated with sterile saline solution. debris was removed the proximal tibia was subsequently prepared and was made ready for the placement of the tibial component tibial component was also cemented and tamped into position the femoral component was subsequently placed and cemented in the position the patellar component was subsequently cemented in position because hemostasis once again obtained and maintained wound having been thoroughly irrigated with debridement and debridement lavage was performed as well as a medial parapatellar incision closed with #1 Vicryl in interrupted fashion subcutaneous was closed with #2 Vicryl skin was closed with skin clips. PA-C was necessary for prepping and drapping as well as wound closure of deep fascia Sub cutaneous tissue and skin and was necessary for the case. A sterile compressive dressing was placed patient was taken to recovery in stable condition of report dictated by Joe I attest to the content of the Intraoperative Record and any orders documented therein. Any exceptions are noted below. I attest to the content of the Intraoperative Record and any orders documented therein. Any exceptions are noted below.
[2018-02-20] MEDS ORDERED: MEPERIDINE HCL 25 MG/ML CARP IV PRN (12:15)
[2018-02-20] MEDS ORDERED: FENTANYL CITRATE INJ 50 MCG/1 ML 2 ML VIAL IV PRN (12:15)
[2018-02-20] MEDS ORDERED: EpHEDrine SULFATE INJ 50 MG/ML AMP IV PRN (12:15)
[2018-02-20] MEDS ORDERED: ATROPINE SULFATE 0.1 MG/ML 5ML SYR IV PRN (12:15)
[2018-02-20] MEDS ORDERED: ONDANSETRON INJ 2 MG/ML 2 ML VIAL IV PRN ×2 (12:15→12:45)
[2018-02-20] MEDS ORDERED: LABETALOL HCL IV 5 MG/ML 20ML IV PRN (12:15)
[2018-02-20] MEDS ORDERED: HYDROmorphone INJ 1 MG/ML SYR IV PRN (12:15)
[2018-02-20] MEDS ORDERED: TRAMADOL HCL 50 MG TAB PO PRN (12:45)
[2018-02-20] MEDS ORDERED: ALUMINUM/MAGNESIUM/SIMETH (MAALOX MAX) 30 ML UDC PO PRN (12:45)
[2018-02-20] MEDS ORDERED: OXYCODONE HCL IR 5 MG TAB (IMMEDIATE RELEASE) PO PRN (12:45)
[2018-02-20] MEDS ORDERED: MAGNESIUM HYDROXIDE SUSP 30 ML UDC PO PRN (12:45)
[2018-02-20] MEDS ORDERED: MoRPHine SULFATE 4 MG/ML 1 ML CARP\\VIAL IV PRN (12:45)
[2018-02-20] MEDS ORDERED: TRAZODONE HCL 50 MG TAB PO PRN (12:45)
[2018-02-20] MEDS ORDERED: BISACODYL 10 MG SUPP PR PRN (12:45)
--- NOTE | 2018-02-20 13:16 | DIAGNOSTIC IMAGING REPORT ---
R KNEE 1 OR 2 VIEWS ROUTINE CLINICAL HISTORY: 62 years-old Male presenting with AP/LATERAL IN PACU RIGHT KNEE. TECHNIQUE: Frontal and crosstable lateral views of the right knee were obtained. COMPARISON: None. FINDINGS: Postsurgical changes of total right knee arthroplasty with patellar resurfacing. Expected intra-articular and soft tissue emphysema. A surgical drain is in place. No periprosthetic fracture. No malalignment. No hardware complication. IMPRESSION: Expected postsurgical appearance status post total right knee arthroplasty with patellar resurfacing. Electronically signed by: Florencio Rubio M.D. 02/20/2018 1:15 PM Dictated Date/Time: 02/20/2018 1:14 PM
--- NOTE | 2018-02-20 13:30 | Anesthesiology Progress Note ---
Anesthesia Post Op Note Date & Time February 20, 2018 at 13:30 Vital Signs Pain Intensity: 0 Vital Signs Past 12 Hours Date Time Temp Pulse Resp B/P (MAP) Pulse Ox O2 Delivery O2 Flow Rate FiO2 02/20/18 13:20 60 15 128/72 99 Nasal Cannula 2 02/20/18 13:10 36.8 57 16 133/60 99 Nasal Cannula 2 02/20/18 13:00 54 16 129/67 99 Nasal Cannula 2 02/20/18 12:50 56 13 118/63 98 Nasal Cannula 2 02/20/18 12:40 58 12 127/59 98 Nasal Cannula 2 02/20/18 12:32 36.0 64 15 121/69 99 Nasal Cannula 2 02/20/18 08:40 36.9 78 20 171/83 98 Room Air Notes Mental Status: alert / awake / arousable, participated in evaluation Pt Amnestic to Procedure: Yes Nausea / Vomiting: adequately controlled Pain: adequately controlled Airway Patency, RR, SpO2: stable & adequate BP & HR: stable & adequate Hydration State: stable & adequate Neuraxial Anesthesia: was administered, sensory block is resolving Anesthetic Complications: no major complications apparent
[2018-02-20] MEDS ORDERED: PHARMACY GLYCEMIC MGMT CONSULT PRN (14:19)
[2018-02-20] MEDS ORDERED: GLUCOSE 10 TABS/TUBE PO PRN (14:30)
[2018-02-20] MEDS ORDERED: GLUCOSE 40% GEL 15 GM TUBE PO PRN (14:30)
[2018-02-20] MEDS ORDERED: GLUCAGON FOR INJ 1 MG VIAL IM PRN (14:30)
[2018-02-20] MEDS ORDERED: CARBOHYDRATES FOR HYPOGLYCEMIA PO PRN (14:30)
[2018-02-20] MEDS ORDERED: DEXTROSE 50% 50 ML SYR IV PRN (14:30)
[2018-02-20] MEDS ORDERED: INSULIN GLARGINE SOLOSTAR 100 UNITS/ML 3 ML PEN SC ONE ×2 (14:45→21:00)
--- NOTE | 2018-02-20 14:46 | Pharmacy Progress Note ---
Glycemic Control Intl Consult Date of Service February 20, 2018. Scope Glycemic Pharmacist consulted by Jorge Herring PA-C on 02/20/18 for glycemic control and to write orders per [facility] inpatient glycemic control protocol Objective Weight (Kilograms): 95.450 Accuchecks BSG (last 24hrs): Test 02/20/18 08:51 02/20/18 12:58 02/20/18 14:16 Bedside Glucose 188 mg/dl (70-99) 208 mg/dl (70-99) 216 mg/dl (70-99) HbA1c 8.3% on 01/26/18 Recent Pertinent Medications Outpatient Anti-diabetic Regimen: * metformin 500mg PO BIDM Risk Factors for Insulin Resistance: * Steroids * Recent Surgery * Diet Assessment & Plan ASSESSMENT: * 62yo T2DM male with sub-adequate degree of outpatient control. Goal A1c <7% based on age and co-morbidities. Current A1c is 8.3%. Pt may need to maximize metformin dosing vs adding another antidiabetic agent to achieve optimal degree of control. * Pt is maintained on oral antidiabetic agents as an outpatient * Oral agents are not recommended for inpatient use d/t drug interactions, changing PO intake, and difficulty titrating for acute hyper/hypoglycemia. ADA recommends re-initiating outpatient oral agents 1-2 days prior to discharge if/ when appropriate if they were held on admission. * Will hold oral agents for admission and utilize SQ basal bolus insulin regimen which is the recommended regimen for inpatient glycemic control. * Will initiate weight based insulin dosing for insulin hodan patient and titrate based on BSG trends. * Post-op BSGs are all >200 mg/dl. Will start with weight/stress of 2 insulin dosing and add additional PRN dosing if BSG >180 mg/dl. * Pt received PO dexamethasone pre-operatively, BSGs may improve over the next 24-48hrs once the hyperglycemic effects of dxm dissipate. PLAN FOR INPATIENT GLYCEMIC CONTROL: hold metformin - will resume when renal function WNL and pt tolerating PO. Use weight based SQ basal bolus insulin dosing regimen. Titrate dosing to maintain BSGs <200 mg/dl (ideally <150 mg/dl) . * Holding outpatient oral diabetes medications * Basal insulin * Lantus 32 units (~0.33 units/kg) SQ x 1 dose NOW * Lantus 10 units this evening at bedtime IF BSG >180 mg/dl * Lantus 20-25 units SQ daily in AM depending on BSG (decreasing tomorrow's dosing when dxm should be wearing off) * Bolus insulin * NovoLog per scale ACHS or Q6hrs while NPO. Additional checks/coverage at 0000 & 0400 to make up for inadequate basal insulin dosing. * Goal Range: Low 110 mg/dL - High 140 mg/dL * Correction Factor: 20 mg/dL/unit * Nutritional / Prandial insulin per carb ratio of 1 unit per 7 grams CHO consumed * Please note that the plan above was derived based on current level of insulin resistance and hospital stress. These recommendations are appropriate for inpatient admission only. Plan of care upon discharge will need to be reassessed to avoid potential outpatient hypo/hyperglycemia. Thank you.
[2018-02-20] MEDS: INSULIN ASPART 100 UNITS/ML 3 ML PEN SC SCH ×4 (15:07→23:56)
[2018-02-20] MEDS: CLINDAMYCIN IV 600 MG in DEXTROSE 5% 50ML 46 ML IV SCH (18:06)
[2018-02-20] MEDS: FERROUS GLUCONATE 324 MG TAB PO SCH (18:06)
[2018-02-20] MEDS: SODIUM CHLORIDE 0.9% 1000ML 1,000 ML IV SCH (19:31)
[2018-02-20] MEDS ORDERED: TAMSULOSIN HCL 0.4 MG CAP PO SCH (21:00)
[2018-02-20] MEDS ORDERED: FINASTERIDE 5 MG TAB PO SCH (21:00)
[2018-02-20] MEDS ORDERED: SENNA 8.6 MG TAB PO SCH (21:00)
[2018-02-20] MEDS: DOCUSATE SODIUM 100 MG CAP PO SCH (21:06)
[2018-02-20] MEDS: CeleBREX 200 MG CAP PO SCH (21:06)
[2018-02-20] MEDS: ASPIRIN 81 MG ECTAB PO SCH (21:06)
[2018-02-20] MEDS: ACETAMINOPHEN 500 MG TAB PO SCH (21:07)
[2018-02-21] MEDS ORDERED: NURSING VERBAL MED ORDER ONE
[2018-02-21] MEDS: CLINDAMYCIN IV 600 MG in DEXTROSE 5% 50ML 46 ML IV SCH (01:28)
[2018-02-21 03:00] VITALS: BP 125/71; PULSE 61; TEMP 36.7; O2SAT 96
[2018-02-21] MEDS: INSULIN ASPART 100 UNITS/ML 3 ML PEN SC SCH ×3 (03:50→12:50)
[2018-02-21] MEDS: ACETAMINOPHEN 500 MG TAB PO SCH ×2 (05:10→13:52)
[2018-02-21] MEDS: SODIUM CHLORIDE 0.9% 1000ML 1,000 ML IV SCH (05:10)
[2018-02-21 07:03] LABS: HEMATOCRIT 36.5 % (42-52); HEMOGLOBIN 12.4 g/dL (14.0-18.0); MEAN CELL VOLUME 89.7 fL (80-100); MEAN CORPUSCULAR HEMOGLOBIN 30.5 pg (25-34); MEAN PLATELET VOLUME 9.5 fL (7.4-10.4); PLATELET COUNT 172 K/uL (130-400); RED CELL DISTRIBUTION WIDTH CV 14.4 % (11.5-14.5); RED CELL DISTRIBUTION WIDTH SD 47.1 fL (36.4-46.3); WHITE BLOOD COUNT 11.85 K/uL (4.8-10.8)
[2018-02-21 07:38] LABS: CALCIUM 8.8 mg/dl (8.5-10.1); CREATININE 0.99 mg/dl (0.60-1.40); POTASSIUM 4.1 mmol/L (3.5-5.1)
[2018-02-21 08:06] VITALS: BP 145/74; PULSE 57; TEMP 36.6; O2SAT 97
--- NOTE | 2018-02-21 08:15 | Orthopedic Progress Note ---
Orthopedic Progress Note Date of Service February 21, 2018. Subjective Post OP Day: 1 Reports: feeling well, Denies: chest pain, SOB, nausea / vomiting, light headedness, calf pain Objective calves soft nontender, N/V intact, capillary refill less than 2 sec., dressing C /D/I, A&O x3, toes mobile, hemovac drainage (150/10cc per shift) Date Time Temp Pulse Resp B/P (MAP) Pulse Ox O2 Delivery O2 Flow Rate FiO2 02/21/18 08:06 36.6 57 16 145/74 (97) 97 Room Air 02/21/18 03:00 36.7 61 16 125/71 (89) 96 Room Air 02/20/18 22:56 36.8 68 15 125/57 (79) 93 Room Air 02/20/18 19:50 Room Air 02/20/18 19:47 36.8 68 16 142/75 (97) 98 Room Air 02/20/18 16:50 36.8 57 16 117/67 (84) 97 Room Air 02/20/18 15:50 37.0 70 18 128/72 (90) 95 Room Air 02/20/18 15:50 Room Air 02/20/18 15:00 36.8 67 14 148/73 (98) 97 Nasal Cannula 2.0 02/20/18 14:19 67 16 120/62 (81) 98 Nasal Cannula 2.0 02/20/18 13:50 Nasal Cannula 2.0 02/20/18 13:50 36.9 65 14 123/68 (86) 97 Nasal Cannula 2.0 02/20/18 13:50 Nasal Cannula 2.0 02/20/18 13:30 63 12 128/68 97 Nasal Cannula 2 02/20/18 13:20 60 15 128/72 99 Nasal Cannula 2 02/20/18 13:10 36.8 57 16 133/60 99 Nasal Cannula 2 02/20/18 13:00 54 16 129/67 99 Nasal Cannula 2 02/20/18 12:50 56 13 118/63 98 Nasal Cannula 2 02/20/18 12:40 58 12 127/59 98 Nasal Cannula 2 02/20/18 12:32 36.0 64 15 121/69 99 Nasal Cannula 2 02/20/18 08:40 36.9 78 20 171/83 98 Room Air Laboratory Results 24 Hours: Test 02/21/18 06:36 Hematocrit 36.5 % Hemoglobin 12.4 g/dL Assessment & Plan Assessment: POD#1 SP RIGHT TKA Plan: PT/OT DVT PROPH- ASA 81MG BID PAIN MANAGEMENT- RAYMON, TYLENOL DC PLANNING- POSSIBLE DC TO HOME LATER TODAY WITH ADVANTAGE. DC DRESSING/DRAIN IN AM.
[2018-02-21] MEDS ORDERED: SENN-61 PO (08:17)
[2018-02-21] MEDS ORDERED: ACET-24 PO (08:17)
[2018-02-21] MEDS ORDERED: RXC5 PO (08:17)
[2018-02-21] MEDS ORDERED: CLB200 PO (08:17)
[2018-02-21] MEDS ORDERED: ONDA-170 PO (08:17)
[2018-02-21] MEDS ORDERED: ASPI-320 PO (08:17)
--- NOTE | 2018-02-21 08:19 | Discharge Instructions ---
Discharge Instructions Date of Service February 21, 2018. Admission Reason for Admission: Right Knee Osteoarthritis Discharge Discharge Diagnosis / Problem: SP RIGHT TKA Discharge Goals Goal(s): Decrease discomfort, Improve function, Increase independence Activity Recommendations Activity Limitations: per Instructions/Follow-up section . Instructions / Follow-Up Instructions / Follow-Up ACTIVITY RECOMMENDATIONS: SELF CARE INSTRUCTIONS AFTER TOTAL KNEE REPLACEMENT A. You may need to continue a physical therapy program after discharge from the hospital. There are several options available to you. Your doctor will assist you in selecting the best one for you. 1. An out-patient facility 2 to 3 times a week for therapy or home therapy. 2. Continue working on all exercises taught to you in the hospital. Your goals should be to increase bending of your knee to 90 degrees and beyond and to fully straighten your knee. B. You may progress at your own pace from walking with a walker or crutches to a cane; then to no assistive devices. C. Make walking a part of your daily routine. Be up as much as comfortable with rest periods throughout the day. Rest with leg elevation is very important. Use the ice wrap frequently for the first 3-4 weeks. D. There are no restrictions on activities. You may ride in a car, shop, participate in lead pressman and all social activities. E. Wear the long elastic stockings (HORTENSIA hose) 20 hours a day for 2 weeks after surgery. They can be removed several times a day for laundering and for a bath. F. You may shower, no tub baths until cleared by your doctor. SPECIAL CARE INSTRUCTIONS: VERY IMPORTANT TO READ AND REVIEW A. There are a few signs you need to watch for after you are home. Call [facility] if you notice any of the followin. Increased severe knee pain. Some pain is expected especially when you exercise. 2. Increased swelling in your leg or knee; pain or swelling of the calf muscle in either lower leg. 3. Any fluid drainage from the incision. 4. Shortness of breath or chest pain. B. Please call [facility] at if you have any concerns or questions about your operation or recovery. The doctor or his nurse will return your call promptly. C. You must take antibiotics before dental work, bladder, bowel or other surgery. Your doctor will provide you with a permanent care to carry describing this precaution. IMPORTANT: * REMEMBER TO TAKE ASPIRIN, 81 MG, TWICE DAILY FOR 4 WEEKS UNLESS OTHERWISE DIRECTED. THIS IS YOUR BLOOD THINNER. * HIGH RISK PATIENTS MAY BE PRESCRIBED A STRONGER BLOOD THINNER. THIS WILL BE PROVIDED AT DISCHARGE. * CALL IF INCREASED PAIN, REDNESS, DRAINAGE OR FEVER GREATER THAT 101. * WEAR HORTENSIA HOSE 20 HOURS PER DAY FOR 2 WEEKS. * DERMABOND Prineo- This is a mesh tape dressing that is covered with glue. It should remain in place until the incision is properly healed, usually 10-14 days. This dressing is designed to naturally slough off. You may trim the excess mesh tape as it peels off. Incision may be briefly wet in a shower. Dry immediately by blotting with a clean, dry towel. Do not bath or swim until instructed by your doctor. Do not scratch, rub, or pick at the dressing. Do not apply any topical ointments or lotions until dressing is completely removed and/or instructed by your doctor. There may be a small piece of suture material at one end of your incision. Do not pull or trim this. If it is bothersome or catching on clothing, you may cover it with a band-aid. FOLLOW UP VISIT: If appointment is not already scheduled: Please call [facility] to make a follow-up appointment for 2 weeks after your surgery at . Current Hospital Diet Patient's current hospital diet: Diabetes Type 2 Diet Discharge Diet Recommended Diet: Regular Diet Procedures Procedures Performed: Right knee total arthroplasty utilizing Medley nephWaicai patient matched journey to total knee arthroplasty size 7 femur 6 tibia 10 polyethylene 38 oval patella Pending Studies Studies pending at discharge: no Laboratory Results Hemoglobin A1c Test 01/26/18 10:50 Range/Units Estimated Average Glucose 192 mg/dl Hemoglobin A1c 8.3 H 4.5-5.6 % Medical Emergencies . Who to Call and When: Medical Emergencies: If at any time you feel your situation is an emergency, please call 911 immediately. . Non-Emergent Contact Non-Emergency issues call your: Surgeon . "Provider Documentation" section prepared by Cari Mora. .
[2018-02-21] MEDS ORDERED: INSULIN GLARGINE SOLOSTAR 100 UNITS/ML 3 ML PEN SC SCH (09:00)
[2018-02-21] MEDS ORDERED: LISINOPRIL/HCTZ 10/12.5MG TAB PO SCH (09:00)
[2018-02-21] MEDS ORDERED: MULTIVITAMIN TAB PO SCH (09:00)
[2018-02-21] MEDS: CeleBREX 200 MG CAP PO SCH (09:05)
[2018-02-21] MEDS: ASPIRIN 81 MG ECTAB PO SCH (09:05)
[2018-02-21] MEDS: FERROUS GLUCONATE 324 MG TAB PO SCH ×2 (09:05→12:45)
[2018-02-21] MEDS: DOCUSATE SODIUM 100 MG CAP PO SCH (09:06)
[2018-02-21 10:50] VITALS: BP 149/75; PULSE 67; TEMP 36.7; O2SAT 98
[2018-02-21 14:14] VITALS: BP 149/75; PULSE 67; TEMP 36.7; O2SAT 98
[2018-02-21 15:25] VITALS: BP 136/75; PULSE 63; TEMP 36.7; O2SAT 98
[2018-02-21] MEDS ORDERED: METFORMIN HCL 500 MG TAB PO SCH (17:45)
== END 2018-02-21 17:01 | disposition home or self-care (01) | DRG 470 ==
LOC: C.ACU 08:25 → C.3E 09:30 → ENRESERV 13:17
PROVIDERS: ADMIT Orthopaedic Surgery; ATTEND Orthopaedic Surgery
PROC: 0SRC0J9 Replacement of Right Knee Joint with Synthetic Substitute, Cemented, Open Approach (ICD-10-PCS; principal; 2018-02-20 11:00)
DX: M17.11 Unilateral primary osteoarthritis, right knee (principal); I10 Essential (primary) hypertension; Z88.0 Allergy status to penicillin; Z79.84 Long term (current) use of oral hypoglycemic drugs